=== PATIENT | female | born 1995 | race Caucasian/White ===

== ENCOUNTER 2022-02-09 17:31 | Emergency (ER) | payer OTHER ==
[2022-02-09 19:22] LABS: BASOPHIL 0.4 % (0-2); EOSINOPHIL 0.3 % (0-5); HGB 14.1 g/dl (12.5-16.0); LYMPHOCYTE 8.7 % (15-48); MCH 28.4 pg (25.0-31.0); MCHC 32.8 g/dL (32.0-36.0); MCV 86.5 fL (78.0-100.0); MONOCYTE 2.8 % (0-12); MPV 9.9 fL (6.0-9.5); NEUTROPHIL 86.3 % (41-80); NRBC 0; PLT 303 K/uL (150-400); RBC 4.97 M/uL (4.20-5.40); WBC 9.8 K/uL (4.0-10.5)
[2022-02-09 19:41] LABS: ALBUMIN 3.9 g/dL (3.4-5.0); BILIRUBIN - TOTAL 0.3 mg/dL (0.2-1.0); CREATININE 0.74 mg/dL (0.51-0.95); GLOBULIN (CALCULATION) 4.8 g/dL; POTASSIUM 3.6 mmol/L (3.5-5.1); TOTAL PROTEIN 8.7 g/dL (6.4-8.2)
[2022-02-09 19:46] LABS: LACTIC ACID 1.1 mmol/L (0.4-1.9)
[2022-02-09 19:54] LABS: INFLUENZA A NAA NEGATIVE (NEGATIVE)
[2022-02-09 19:58] LABS: CORONAVIRUS 2019 SARS-COV-2 POSITIVE (NEGATIVE)
[2022-02-09] MEDS ORDERED: VIBRAMYCIN100 MG PO (21:12)
[2022-02-09] MEDS ORDERED: HYCODAN 5 MG-1.55 ML PO (21:12)
[2022-02-09] MEDS ORDERED: PREDNISONE 20MG20 MG PO (21:12)
== END 2022-02-09 21:49 | disposition home or self-care (01) ==
LOC: FER 17:31
PROVIDERS: Internal Medicine
DX: U07.1 COVID-19 (principal)
CPT/HCPCS: 36415; 71275; 80053; 83605; 84145; 85025; 87040; J1100; J7120; Q9967; U0002